=== PATIENT | female | born 1960 | race Caucasian/White ===

== ENCOUNTER → 2020-02-21 | Outpatient (CLI) | payer BC ==
[2020-02-21 12:42] LABS: HEMOGLOBIN 14.3 gm/dl (12.3-15.3); RED BLOOD COUNT 4.84 M/UL (4.00-5.10); WHITE BLOOD COUNT 12.3 K/UL (4.5-11.0)
[2020-02-21 13:06] LABS: BUN/CREATININE RATIO 20 (0-10)
== END ==
LOC: LAB 12:19
PROVIDERS: Internal Medicine
DX: D89.89 Other specified disorders involving the immune mechanism, not elsewhere classified (principal); M25.50 Pain in unspecified joint; R76.8 Other specified abnormal immunological findings in serum; Z79.899 Other long term (current) drug therapy
CPT/HCPCS: 36415; 80053; 85025

== ENCOUNTER 2021-10-15 18:10 | Emergency (ER) | payer BC, OTHER | END 2021-10-15 18:30 | disposition left against medical advice (07) | LOC: ER1 18:10 | DX: Z53.21 Procedure and treatment not carried out due to patient leaving prior to being seen by health care provider (principal) ==

== ENCOUNTER 2021-11-10 16:18 | Inpatient (IN) | payer BC ==
[~2021-11-10] VITALS: Ht 160 cm; Wt 81.6 kg
[2021-11-10 17:47] LABS: HEMOGLOBIN 14.1 gm/dl (12.3-15.3); RED BLOOD COUNT 4.71 M/UL (4.00-5.10); WHITE BLOOD COUNT 13.7 K/UL (4.5-11.0)
[2021-11-10 18:07] LABS: BUN/CREATININE RATIO 15 (0-10)
[2021-11-10] MEDS ORDERED: MELOXICAM15 MG PO (18:54)
[2021-11-10] MEDS ORDERED: BENZTROPINE ME0.5 MG PO (18:54)
[2021-11-10] MEDS ORDERED: ESCITALOPRAM OX20 MG PO (18:55)
[2021-11-10] MEDS ORDERED: SYMBICORT 16010.2 GM INH (18:55)
[2021-11-10] MEDS ORDERED: POTASSIUM CHLO10 ME1 PO (18:56)
[2021-11-10] MEDS ORDERED: PROTONIX40 MG PO (18:56)
[2021-11-10] MEDS ORDERED: STELARA45 MG/0.5 SQ (18:56)
[2021-11-10] MEDS ORDERED: MONTELUKAST SOD10 MG PO (18:57)
[2021-11-10] MEDS ORDERED: OLANZAPINE10 MG PO (18:57)
[2021-11-10] MEDS ORDERED: LEVOTHYROXINE25 MCG PO (18:58)
[2021-11-10] MEDS ORDERED: BUPRENORPHIN-N1 EACH SL (18:58)
[2021-11-10] MEDS ORDERED: LOSARTAN-HCTZ1 EAC2 PO (18:59)
[2021-11-10] MEDS ORDERED: FLONASE 0.05% N16 GM (18:59)
[2021-11-10] MEDS ORDERED: CLARITIN-D 241 EACH PO (20:33)
[2021-11-11 03:36] LABS: HEMOGLOBIN 13.1 gm/dl (12.3-15.3); RED BLOOD COUNT 4.35 M/UL (4.00-5.10); WHITE BLOOD COUNT 10.3 K/UL (4.5-11.0)
[2021-11-11 04:04] LABS: BUN/CREATININE RATIO 20 (0-10)
[2021-11-12 04:44] LABS: HEMOGLOBIN 12.3 gm/dl (12.3-15.3); RED BLOOD COUNT 4.18 M/UL (4.00-5.10)
[2021-11-12 04:54] LABS: WHITE BLOOD COUNT 22.5 K/UL (4.5-11.0)
[2021-11-12 05:07] LABS: BUN/CREATININE RATIO 33 (0-10)
[2021-11-12 08:14] LABS: HEMOGLOBIN A1C 6.3 % (4.8-5.6)
[2021-11-12] MEDS ORDERED: OMNICEF 300 MG300 MG PO (17:55)
[2021-11-12] MEDS ORDERED: MEDROL DOSEPAK 24 MG PO (17:55)
[2021-11-12] MEDS ORDERED: DOXYCYCLINE HY100 M2 PO (17:55)
[2021-11-12] MEDS ORDERED: SPIRIVA HANDIH18 MCG INH (17:55)
[2021-11-12] MEDS ORDERED: NICOTINE PATCH1 EAC2 TD (18:21)
--- NOTE | 2021-11-12 19:31 | NUR ---
PT 89% O2 SAT ON RA
== END 2021-11-12 19:51 | disposition home or self-care (01) | DRG 189 ==
LOC: ER1 16:18 → MED SURG 4 18:00 → CDU 18:00 → MED SURG 4 20:25
PROVIDERS: Physician Assistant; ADMIT Internal Medicine
DX: J96.22 Acute and chronic respiratory failure with hypercapnia (principal); J44.1 Chronic obstructive pulmonary disease with (acute) exacerbation; F11.20 Opioid dependence, uncomplicated; J96.21 Acute and chronic respiratory failure with hypoxia; F17.210 Nicotine dependence, cigarettes, uncomplicated; F41.9 Anxiety disorder, unspecified; F32.A Depression, unspecified; T38.0X5A Adverse effect of glucocorticoids and synthetic analogues, initial encounter; Z90.49 Acquired absence of other specified parts of digestive tract; Z98.890 Other specified postprocedural states; Z82.49 Family history of ischemic heart disease and other diseases of the circulatory system
CPT/HCPCS: 36415; 36600; 71045; 80048; 80053; 82550; 82553; 82803; 83036; 83605; 83735; 83880; 84439; 84443; 84484; 85025; 86140; 87040; 93005; 94640; 94664; 94760; 96374; 99285; J0696; J1650; J2920; J2930; J7070; U0002